=== PATIENT | male | born 1955 | race Caucasian/White ===

== ENCOUNTER 2018-01-02 06:48 | Inpatient (IN) | payer BC ==
[2018-01-02] MEDS ORDERED: Sodium Chloride 0.9% 10 ML Syringe FLUSH PRN (07:55)
--- NOTE | 2018-01-02 08:06 | EDM.PDOC ---
ED HPI GENERAL MEDICAL PROBLEM - General Chief Complaint: Lower Extremity Injury/Pain Stated Complaint: L HIP AND SIDE PAIN Time Seen by Provider: 01/02/18 07:06 Source of Information: Reports: Patient History Limitations: Reports: No Limitations - History of Present Illness INITIAL COMMENTS - FREE TEXT/NARRATIVE: 62 y/o M presents with severe L hip pain. Gradual onset x 2 months. No injury. He initially had some pain in his low back as well as the hip. Had MRI of his low back complete which was reportedly not concerning. Saw Dr. Stephens (spine surgery). Dr. Stephens ordered an MRI which was completed, patient was told that it was unremarkable. He continued to have worsening pain. He states that pain is now localized mostly in the left hip but sometimes travels down the leg. It is most severe in the morning when he wakes up. However it is also very severe with any sort of movement. He has been taking NSAIDs, oxycodone, and a muscle relaxer for pain which makes the pain barely tolerable but this morning the pain was not tolerable so he came in for evaluation. Currently rates the pain is very severe. Pain is worse with ambulation. Today he is unable to walk due to pain. There is not a comfortable position. Intermittently has a feeling of some numbness going down his left leg as well. No weakness. No additional joint pain. No fever or recent illness or any systemic complaints. He doesn't have a history of prior back or hip pain before the past 2 months. He doesn't recall an inciting injury. Saw Dr. Jimenez yesterday who referred him for outpatient MRI which is scheduled for next week and also scheduled with an orthopedist but won't be seeing that physician until January. Left Hip Pain Score (Numeric/FACES): 8 - Related Data Allergies Allergy/AdvReac Type Severity Reaction Status Date / Time Iodinated Contrast- Oral and Allergy Cardiac Verified 01/02/18 10:42 IV Dye Arrest iodoform Allergy Cannot Verified 01/02/18 07:02 Remember povidone-iodine Allergy Cannot Verified 01/02/18 07:02 Remember sodium iodide Allergy Cannot Verified 01/02/18 07:02 Remember iodine AdvReac Hypotension Verified 01/02/18 07:02 Home Meds: Home Meds Aspirin [Adult Low Dose Aspirin EC] 81 mg PO DAILY 03/10/14 [History] Clopidogrel Bisulfate [Clopidogrel] 75 mg PO DAILY 03/10/14 [History] Metoprolol Succinate [Toprol XL] 25 mg PO DAILY 03/10/14 [History] atorvaSTATin Calcium [Atorvastatin Calcium] 80 mg PO DAILY 03/10/14 [History] Indomethacin 25 mg PO TID 01/02/18 [History] Orphenadrine [Norflex] 100 mg PO BID 01/02/18 [History] oxyCODONE HCl/Acetaminophen [Oxycodone-Acetaminophen 5-325] 1 - 2 tab PO QID PRN 01/02/18 [History] Past Medical History HEENT History: Reports: Impaired Vision Other HEENT History: wears reading glasses Cardiovascular History: Reports: Stents Respiratory History: Reports: Pneumonia, Recurrent - Past Surgical History Cardiovascular Surgical History: Reports: Coronary Artery Stent Social & Family History - Tobacco Use Smoking Status *Q: Current Every Day Smoker Years of Tobacco use: 48 Packs/Tins Daily: 0.5 - Caffeine Use Caffeine Use: Reports: Coffee, Soda - Recreational Drug Use Recreational Drug Use: No Review of Systems - Review of Systems Review Of Systems: See Below Constitutional: Denies: Fever Eyes: Reports: No Symptoms Ears: Reports: No Symptoms Nose: Reports: No Symptoms Mouth/Throat: Reports: No Symptoms Respiratory: Reports: No Symptoms Cardiovascular: Denies: Edema GI/Abdominal: Reports: No Symptoms Musculoskeletal: Reports: Leg Pain Skin: Denies: Rash Neurological: Reports: Tingling. Denies: Weakness ED EXAM, GENERAL - Physical Exam Exam: See Below Exam Limited By: No Limitations General Appearance: Alert, WD/WN, No Apparent Distress Eye Exam: Bilateral Eye: Normal Inspection Ears: Normal External Exam Nose: Normal Inspection Throat/Mouth: Normal Voice, No Airway Compromise Head: Atraumatic, Normocephalic Neck: Normal Inspection, Supple Respiratory/Chest: No Respiratory Distress Cardiovascular: Normal Peripheral Pulses, No Edema Peripheral Pulses: 2+: Dorsalis Pedis (L) GI/Abdominal: Soft, No Distention, Other (Left lower quadrant tenderness no rebound or guarding). No: Rebound Back Exam: Normal Inspection, Full Range of Motion, Other (Mild left lower back area tenderness.). No: CVA Tenderness (L), CVA Tenderness (R), Vertebral Tenderness Extremities: Normal Inspection, Other (LLE: No appreciable hip swelling/ deformity. +Severe diffuse TTP about the hip, most severe in groin area. Severe pain is elicited when ranging the hip. No thigh TTP. No knee effusion, full ROM , no knee TTP. Distal motor/sensation intact. 2+DP pulse ) Psychiatric: Normal Affect, Normal Mood Skin Exam: Warm, Dry, Intact, Normal Color, No Rash Course - Vital Signs Last Recorded V/S: Last Vital Signs Temp 36.6 C 01/02/18 06:59 Pulse 70 01/02/18 17:49 Resp 16 01/02/18 17:49 BP 152/100 H 01/02/18 17:49 Pulse Ox 95 01/02/18 17:49 - Orders/Labs/Meds Orders: Active Orders 24 hr Category Date Time Status Peripheral IV Care [RC] . DIRECTED Care 01/02/18 07:55 Active Pelvis wo Cont [MR] Stat Exams 01/02/18 10:36 Taken UA W/MICROSCOPIC [URIN] Stat Lab 01/02/18 13:45 Ordered Morphine Med 01/02/18 08:16 Active 4 mg IVPUSH Q2H PRN Sodium Chloride 0.9% [Saline Flush] Med 01/02/18 07:55 Active 10 ml FLUSH ASDIRECTED PRN Peripheral IV Insertion Adult [OM.PC] Routine Oth 01/02/18 07:55 Ordered Medication Orders Morphine Sulfate (Morphine) 4 mg IVPUSH Q2H PRN PRN Reason: Pain Last Admin: 01/02/18 13:02 Dose: 4 mg Admin: 01/02/18 09:16 Dose: 4 mg Sodium Chloride (Saline Flush) 10 ml FLUSH ASDIRECTED PRN PRN Reason: Keep Vein Open Last Admin: 01/02/18 08:15 Dose: 10 ml Labs: Laboratory Tests 01/02/18 01/02/18 01/02/18 Range/Units 08:15 08:15 08:15 WBC 7.28 (4.23-9.07) K/mm3 RBC 4.79 (4.63-6.08) M/mm3 Hgb 14.9 (13.7-17.5) gm/L Hct 42.9 (40.1-51.0) % MCV 89.6 (79.0-92.2) fl MCH 31.1 (25.7-32.2) pg MCHC 34.7 (32.2-35.5) g/dl RDW Std Deviation 39.8 (35.1-43.9) fL Plt Count 172 (163-337) K/mm3 MPV 9.1 L (9.4-12.3) fl Neut % (Auto) 72.4 H (34.0-67.9) % Lymph % (Auto) 17.2 L (21.8-53.1) % [place] % (Auto) 8.2 (5.3-12.2) % Eos % (Auto) 1.6 (0.8-7.0) Baso % (Auto) 0.3 (0.1-1.2) % Neut # (Auto) 5.27 (1.78-5.38) K/mm3 Lymph # (Auto) 1.25 L (1.32-3.57) K/mm3 [place] # (Auto) 0.60 (0.30-0.82) K/mm3 Eos # (Auto) 0.12 (0.04-0.54) K/mm3 Baso # (Auto) 0.02 (0.01-0.08) K/mm3 ESR 5 (0-15) mm/hr Sodium 140 (136-145) mEq/L Potassium 4.8 (3.5-5.1) mEq/L Chloride 107 (98-107) mEq/L Carbon Dioxide 25 (21-32) mEq/L Anion Gap 12.8 (5-15) BUN 24 H (7-18) mg/dL Creatinine 1.2 (0.7-1.3) mg/dL Est Cr Clr Drug Dosing 66.75 mL/min Estimated GFR (MDRD) > 60 (>60) mL/min BUN/Creatinine Ratio 20.0 H (14-18) Glucose 102 (80-115) mg/dL Calcium 8.6 (8.5-10.1) mg/dL Total Bilirubin 0.7 (0.2-1.0) mg/dL AST 31 (15-37) U/L ALT 51 (16-63) U/L Alkaline Phosphatase 90 (46-116) U/L C-Reactive Protein (<1.0) mg/dL Total Protein 6.6 (6.4-8.2) g/dl Albumin 3.5 (3.4-5.0) g/dl Globulin 3.1 gm/dL Albumin/Globulin Ratio 1.1 (1-2) 01/02/18 Range/Units 08:15 WBC (4.23-9.07) K/mm3 RBC (4.63-6.08) M/mm3 Hgb (13.7-17.5) gm/L Hct (40.1-51.0) % MCV (79.0-92.2) fl MCH (25.7-32.2) pg MCHC (32.2-35.5) g/dl RDW Std Deviation (35.1-43.9) fL Plt Count (163-337) K/mm3 MPV (9.4-12.3) fl Neut % (Auto) (34.0-67.9) % Lymph % (Auto) (21.8-53.1) % [place] % (Auto) (5.3-12.2) % Eos % (Auto) (0.8-7.0) Baso % (Auto) (0.1-1.2) % Neut # (Auto) (1.78-5.38) K/mm3 Lymph # (Auto) (1.32-3.57) K/mm3 [place] # (Auto) (0.30-0.82) K/mm3 Eos # (Auto) (0.04-0.54) K/mm3 Baso # (Auto) (0.01-0.08) K/mm3 ESR (0-15) mm/hr Sodium (136-145) mEq/L Potassium (3.5-5.1) mEq/L Chloride (98-107) mEq/L Carbon Dioxide (21-32) mEq/L Anion Gap (5-15) BUN (7-18) mg/dL Creatinine (0.7-1.3) mg/dL Est Cr Clr Drug Dosing mL/min Estimated GFR (MDRD) (>60) mL/min BUN/Creatinine Ratio (14-18) Glucose (80-115) mg/dL Calcium (8.5-10.1) mg/dL Total Bilirubin (0.2-1.0) mg/dL AST (15-37) U/L ALT (16-63) U/L Alkaline Phosphatase (46-116) U/L C-Reactive Protein < 0.2 (<1.0) mg/dL Total Protein (6.4-8.2) g/dl Albumin (3.4-5.0) g/dl Globulin gm/dL Albumin/Globulin Ratio (1-2) Meds: Medications Generic Name Dose Route Start Last Admin Trade Name Miguel PRN Reason Stop Dose Admin Morphine Sulfate 4 mg 01/02/18 08:16 01/02/18 13:02 Morphine IVPUSH 4 mg Q2H PRN Administration Pain Sodium Chloride 10 ml 01/02/18 07:55 01/02/18 08:15 Saline Flush FLUSH 10 ml ASDIRECTED PRN Administration Keep Vein Open Discontinued Medications Generic Name Dose Route Start Last Admin Trade Name Miguel PRN Reason Stop Dose Admin Cyclobenzaprine HCl 10 mg 01/02/18 16:33 01/02/18 17:33 Flexeril PO 01/02/18 16:34 10 mg ONETIME ONE Administration Dexamethasone 10 mg 01/02/18 16:33 01/02/18 17:34 Dexamethasone IV 01/02/18 16:34 Not Given ONETIME ONE Dexamethasone 10 mg 01/02/18 17:26 01/02/18 17:31 Dexamethasone IVPUSH 01/02/18 17:27 10 mg ONETIME ONE Administration Dexamethasone Confirm 01/02/18 17:25 01/02/18 17:31 Dexamethasone Administered 01/02/18 17:26 Not Given Dose 10 mg .ROUTE .STK-MED ONE Gabapentin 100 mg 01/02/18 16:29 01/02/18 17:33 Neurontin PO 01/02/18 16:30 100 mg ONETIME ONE Administration Gadobenate Dimeglumine 20 ml 01/02/18 11:29 Multihance IVPUSH 01/02/18 11:30 ONETIME ONE Hydromorphone HCl 1 mg 01/02/18 16:27 01/02/18 17:28 Dilaudid IVPUSH 01/02/18 16:28 1 mg ONETIME ONE Administration Ketorolac Tromethamine 30 mg 01/02/18 16:29 01/02/18 17:34 Toradol IVPUSH 01/02/18 16:30 30 mg ONETIME ONE Administration Sodium Chloride 10 ml 01/02/18 11:30 Saline Flush FLUSH ASDIRECTED NATALIE - Re-Assessments/Exams Free Text/Narrative Re-Assessment/Exam: 01/02/18 17:59 We obtained x-rays pushed from [place]. Left hip showed mild degenerative changes, otherwise unremarkable. Patient had a venous duplex of the bilateral lower extremities completed at [place] on 12/29/17. The report was no evidence of DVT. Lumbar spine x-ray showed degenerative spondylosis otherwise normal. MRI L spine dated 12/19/17 report reads left L4-L5 foraminal protrusion resulting in moderate neural foraminal narrowing and mild L5-S1 disc bulge with associated neural foraminal narrowing. Given severity of patient's symptoms, I was initially concerned about possible septic joint. However his ESR, CRP, and CBC are all completely normal. MRI of the pelvis was completed and showed no significant abnormality. Patient did have some mild left lower quadrant tenderness as well and given negative studies expanded workup to include a CT abdomen and pelvis without contrast since patient has a severe IV contrast allergy. This study was also normal. Upon reevaluation, he continues to have significant pain even after a few doses of narcotic medication. He doesn't feel like he can get out of bed. I do not have any concerns of narcotic pain medication seeking behavior him I believe the patient is legitimately too uncomfortable to move. Severe sciatica is a consideration. I ordered dexamethasone, gabapentin, Toradol. saw the patient in the emergency department and doesn't have any further recommendations at this time but will continue to follow the patient if he's admitted. Discussed with Dr. Bonner who agrees to evaluate the patient for possible admission for pain control, physical therapy. Departure - Departure Time of Disposition: 18:04 Disposition: Admitted As Inpatient 67 Clinical Impression: Hip pain, left, Back pain with left-sided sciatica - Discharge Information Referrals: Prudencio Deal MD [Primary Care Provider] - Forms: ED Department Discharge - My Orders Last 24 Hours: My Active Orders 01/02/18 07:55 Peripheral IV Care [RC] . DIRECTED Sodium Chloride 0.9% [Saline Flush] 10 ml FLUSH ASDIRECTED PRN Peripheral IV Insertion Adult [OM.PC] Routine 01/02/18 08:16 Morphine 4 mg IVPUSH Q2H PRN 01/02/18 10:36 Pelvis wo Cont [MR] Stat 01/02/18 13:45 UA W/MICROSCOPIC [URIN] Stat - Assessment/Plan Last 24 Hours: My Active Orders 01/02/18 07:55 Peripheral IV Care [RC] . DIRECTED Sodium Chloride 0.9% [Saline Flush] 10 ml FLUSH ASDIRECTED PRN Peripheral IV Insertion Adult [OM.PC] Routine 01/02/18 08:16 Morphine 4 mg IVPUSH Q2H PRN 01/02/18 10:36 Pelvis wo Cont [MR] Stat 01/02/18 13:45 UA W/MICROSCOPIC [URIN] Stat
[2018-01-02] MEDS: Morphine 4 MG/ML Syringe IVPUSH PRN ×2 (09:16→13:02)
[2018-01-02] MEDS ORDERED: Gadobenate Dimeglumine 529 MG/ML 20 ML SDV IVPUSH ONE (11:29)
[2018-01-02] MEDS ORDERED: Sodium Chloride 0.9% 10 ML Syringe FLUSH SCH (11:30)
--- NOTE | 2018-01-02 14:23 | CT ---
CT abdomen and pelvis Technique: Multiple axial sections were obtained from above the dome of the diaphragm inferiorly through the pubic symphysis. Intravenous and oral contrast not utilized. Lack of contrast diminishes some details. Findings: Kidneys show no abnormal calcifications. No ureteral dilatation or ureteral stone is seen. Visualized lung bases shows nothing acute. 4 low density lesions are seen within the liver which are felt compatible with cysts. Largest cyst measures approximately 3.4 cm. Spleen appears within normal limits. Adrenal glands show no nodule. Pancreas is within normal limits. Calcified gallstones are seen within the gallbladder. Pancreas is within normal limits. Aorta shows atherosclerotic calcification which continues into the iliac vessels. No pelvic mass or adenopathy is seen. Small fat-containing inguinal hernias are seen bilaterally. Appendix is seen which is normal in size. Mild diverticulosis is seen within the sigmoid colon. No inflammatory change or free fluid is seen. Bone window settings were reviewed which appear within normal limits for the patient's age. Incidental note of small fat-containing umbilical hernia. Impression: 1. Incidental findings as noted above. No acute abnormality is identified on noncontrast CT study of the abdomen and pelvis. Diagnostic code #2
[2018-01-02] MEDS ORDERED: HYDROmorphone 0.5 MG/0.5 ML SYRINGE IVPUSH ONE (16:27)
[2018-01-02] MEDS ORDERED: Gabapentin 100 MG Cap PO ONE (16:29)
[2018-01-02] MEDS ORDERED: Ketorolac 30 MG/ML SDV IVPUSH ONE (16:29)
[2018-01-02] MEDS ORDERED: Dexamethasone 4 MG/ML 5 ML MDV IV ONE (16:33)
[2018-01-02] MEDS ORDERED: Cyclobenzaprine 10 MG Tab PO ONE (16:33)
[2018-01-02] MEDS ORDERED: Dexamethasone 10 MG/ML SDV ONE (17:25)
[2018-01-02] MEDS ORDERED: Dexamethasone 10 MG/ML SDV IVPUSH ONE (17:26)
--- NOTE | 2018-01-02 19:56 | PCM.HP ---
H&P History of Present Illness - General Date of Service: 01/02/18 Admit Problem/Dx: Admission Diagnosis/Problem Admission Diagnosis/Problem Hip pain Source of Information: Patient, Family, Provider - History of Present Illness Initial Comments - Free Text/Narative: 62 year old complains of initially back pain but now has left hip pain with movement. he has been seen by multiple providers including Dr Stephens, a back surgeon. There have also been several imaging studies including an MRI which have all been unremarkable. The discomfort and subsequent decreased ability to perform simple task began 2 months ago without an apparent precipitating factor. he has managed his discomfort predominately with OTC Motrin. Recently after being at their [facility] and a day of water sports (water skis/jet skis), the patient experienced svere pain and was taken to the ED in [place]. At that location, he was evaluated, and discharged with three prescriptions. Yesterday he was seen by his PCP, there was no significant pain, however today he reports an inability to get out of bed or move without severe discomfort. He was sen by ortho, an MRI was oredered and was within normal limits. He is a full code and will be admitted for intractable pain. He has been seen by DEEP in the ED for possible placement in a SNF for inpatient rehab. Onset of Symptoms: Reports: Gradual Symptom Onset Date: 10/22/17 Duration of Symptoms: Reports: Week(s):, Getting Worse Location: Reports: Back, Lower Extremity, Left Severity: Moderate Improves with: Reports: Heat Therapy, Medication Worsens with: Reports: Movement Left Hip Pain Score (Numeric/FACES): 3 - Related Data Allergies/Adverse Reactions: Allergies Allergy/AdvReac Type Severity Reaction Status Date / Time Iodinated Contrast- Oral and Allergy Cardiac Verified 01/02/18 10:42 IV Dye Arrest iodoform Allergy Cannot Verified 01/02/18 07:02 Remember povidone-iodine Allergy Cannot Verified 01/02/18 07:02 Remember sodium iodide Allergy Cannot Verified 01/02/18 07:02 Remember iodine AdvReac Hypotension Verified 01/02/18 07:02 Home Medications: Home Meds Aspirin [Adult Low Dose Aspirin EC] 81 mg PO DAILY 03/10/14 [History] Clopidogrel Bisulfate [Clopidogrel] 75 mg PO DAILY 03/10/14 [History] Metoprolol Succinate [Toprol XL] 25 mg PO DAILY 03/10/14 [History] atorvaSTATin Calcium [Atorvastatin Calcium] 80 mg PO DAILY 03/10/14 [History] Indomethacin 25 mg PO TID 01/02/18 [History] Orphenadrine [Norflex] 100 mg PO BID 01/02/18 [History] Valsartan 80 mg PO 01/02/18 [History] oxyCODONE HCl/Acetaminophen [Oxycodone-Acetaminophen 5-325] 1 - 2 tab PO QID PRN 01/02/18 [History] Past Medical History HEENT History: Reports: Impaired Vision Other HEENT History: wears reading glasses Cardiovascular History: Reports: Stents Respiratory History: Reports: Pneumonia, Recurrent - Past Surgical History Cardiovascular Surgical History: Reports: Coronary Artery Stent Social & Family History - Tobacco Use Smoking Status *Q: Current Every Day Smoker Years of Tobacco use: 48 Packs/Tins Daily: 0.5 - Caffeine Use Caffeine Use: Reports: Coffee, Soda - Recreational Drug Use Recreational Drug Use: No H&P Review of Systems - Review of Systems: Review Of Systems: See Below General: Reports: No Symptoms HEENT: Reports: No Symptoms Pulmonary: Reports: No Symptoms Cardiovascular: Reports: No Symptoms Gastrointestinal: Reports: No Symptoms Genitourinary: Reports: No Symptoms Musculoskeletal: Reports: Back Pain, Leg Pain Skin: Reports: No Symptoms Psychiatric: Reports: No Symptoms Neurological: Reports: No Symptoms Hematologic/Lymphatic: Reports: No Symptoms Immunologic: Reports: No Symptoms Exam - Exam Exam: See Below - Vital Signs Vital Signs: Last Vital Signs Temp 36.7 C 01/02/18 19:00 Pulse 74 01/02/18 19:00 Resp 20 01/02/18 19:00 BP 152/92 H 01/02/18 19:00 Pulse Ox 94 L 01/02/18 19:00 Weight: 98.43 kg - Exam Quality Assessment: Supplemental Oxygen General: Alert, Oriented, Cooperative HEENT: Conjunctiva Clear, EACs Clear, EOMI, Nares Patent, Normal Nasal Septum, Pupils Equal, Pupils Reactive, PERRLA Neck: Trachea Midline Lungs: Clear to Auscultation, Normal Respiratory Effort Cardiovascular: Regular Rate, Regular Rhythm GI/Abdominal Exam: Normal Bowel Sounds, Soft, Non-Tender, No Organomegaly, No Distention (Male) Exam: Deferred Rectal (Males) Exam: Deferred Back Exam: Normal Inspection, Other (lower back tenderness) Extremities: Normal Inspection, Normal Range of Motion, Normal Capillary Refill , Other (diffuse TTP at left hip) Skin: Warm Neurological: Cranial Nerves Intact, Reflexes Equal Bilateral, Normal Speech Neuro Extensive - Mental Status: Alert, Oriented x3, Normal Mood/Affect, Normal Cognition, Memory Intact Neuro Extensive - Motor, Sensory, Reflexes: CN II-XII Intact Psychiatric: Alert, Normal Affect, Normal Mood - Patient Data Lab Results Last 24 hrs: Laboratory Results - last 24 hr 01/02/18 01/02/18 01/02/18 Range/Units 08:15 08:15 08:15 WBC 7.28 (4.23-9.07) K/mm3 RBC 4.79 (4.63-6.08) M/mm3 Hgb 14.9 (13.7-17.5) gm/L Hct 42.9 (40.1-51.0) % MCV 89.6 (79.0-92.2) fl MCH 31.1 (25.7-32.2) pg MCHC 34.7 (32.2-35.5) g/dl RDW Std Deviation 39.8 (35.1-43.9) fL Plt Count 172 (163-337) K/mm3 MPV 9.1 L (9.4-12.3) fl Neut % (Auto) 72.4 H (34.0-67.9) % Lymph % (Auto) 17.2 L (21.8-53.1) % [place] % (Auto) 8.2 (5.3-12.2) % Eos % (Auto) 1.6 (0.8-7.0) Baso % (Auto) 0.3 (0.1-1.2) % Neut # (Auto) 5.27 (1.78-5.38) K/mm3 Lymph # (Auto) 1.25 L (1.32-3.57) K/mm3 [place] # (Auto) 0.60 (0.30-0.82) K/mm3 Eos # (Auto) 0.12 (0.04-0.54) K/mm3 Baso # (Auto) 0.02 (0.01-0.08) K/mm3 ESR 5 (0-15) mm/hr Sodium 140 (136-145) mEq/L Potassium 4.8 (3.5-5.1) mEq/L Chloride 107 (98-107) mEq/L Carbon Dioxide 25 (21-32) mEq/L Anion Gap 12.8 (5-15) BUN 24 H (7-18) mg/dL Creatinine 1.2 (0.7-1.3) mg/dL Est Cr Clr Drug Dosing 66.75 mL/min Estimated GFR (MDRD) > 60 (>60) mL/min BUN/Creatinine Ratio 20.0 H (14-18) Glucose 102 (80-115) mg/dL Calcium 8.6 (8.5-10.1) mg/dL Total Bilirubin 0.7 (0.2-1.0) mg/dL AST 31 (15-37) U/L ALT 51 (16-63) U/L Alkaline Phosphatase 90 (46-116) U/L C-Reactive Protein (<1.0) mg/dL Total Protein 6.6 (6.4-8.2) g/dl Albumin 3.5 (3.4-5.0) g/dl Globulin 3.1 gm/dL Albumin/Globulin Ratio 1.1 (1-2) // Range/Units 08:15 WBC (4.23-9.07) K/mm3 RBC (4.63-6.08) M/mm3 Hgb (13.7-17.5) gm/L Hct (40.1-51.0) % MCV (79.0-92.2) fl MCH (25.7-32.2) pg MCHC (32.2-35.5) g/dl RDW Std Deviation (35.1-43.9) fL Plt Count (163-337) K/mm3 MPV (9.4-12.3) fl Neut % (Auto) (34.0-67.9) % Lymph % (Auto) (21.8-53.1) % [place] % (Auto) (5.3-12.2) % Eos % (Auto) (0.8-7.0) Baso % (Auto) (0.1-1.2) % Neut # (Auto) (1.78-5.38) K/mm3 Lymph # (Auto) (1.32-3.57) K/mm3 [place] # (Auto) (0.30-0.82) K/mm3 Eos # (Auto) (0.04-0.54) K/mm3 Baso # (Auto) (0.01-0.08) K/mm3 ESR (0-15) mm/hr Sodium (136-145) mEq/L Potassium (3.5-5.1) mEq/L Chloride (98-107) mEq/L Carbon Dioxide (21-32) mEq/L Anion Gap (5-15) BUN (7-18) mg/dL Creatinine (0.7-1.3) mg/dL Est Cr Clr Drug Dosing mL/min Estimated GFR (MDRD) (>60) mL/min BUN/Creatinine Ratio (14-18) Glucose (80-115) mg/dL Calcium (8.5-10.1) mg/dL Total Bilirubin (0.2-1.0) mg/dL AST (15-37) U/L ALT (16-63) U/L Alkaline Phosphatase (46-116) U/L C-Reactive Protein < 0.2 (<1.0) mg/dL Total Protein (6.4-8.2) g/dl Albumin (3.4-5.0) g/dl Globulin gm/dL Albumin/Globulin Ratio (1-2) Result Diagrams: 01/02/18 08:15 01/02/18 08:15 - Problem List (1) CAD (coronary artery disease) SNOMED Code(s): 64187421 ICD Code: I25.10 - ATHSCL HEART DISEASE OF [place] CORONARY ARTERY W/O ANG PCTRS Status: Acute Current Visit: Yes (2) Hyperlipidemia associated with type 2 diabetes mellitus SNOMED Code(s): 779187777576, 671288455839 ICD Code: E11.69 - TYPE 2 DIABETES MELLITUS WITH OTHER SPECIFIED COMPLICATION ; E78.5 - HYPERLIPIDEMIA, UNSPECIFIED Status: Acute Current Visit: Yes (3) Back pain with left-sided sciatica SNOMED Code(s): 769245204, 678969794 ICD Code: M54.32 - SCIATICA, LEFT SIDE Status: Acute Current Visit: Yes (4) Hip pain, left SNOMED Code(s): 97054312 ICD Code: M25.552 - PAIN IN LEFT HIP Status: Acute Current Visit: Yes Problem List Initiated/Reviewed/Updated: Yes Orders Last 24hrs: Active Orders 24 hr Category Date Time Status Patient Status [ADT] Routine ADT 01/02/18 18:33 Active Pelvis wo Cont [MR] Stat Exams 01/02/18 10:36 Taken UA W/MICROSCOPIC [URIN] Stat Lab 01/02/18 13:45 Ordered Morphine Med 01/02/18 08:16 Active 4 mg IVPUSH Q2H PRN Sodium Chloride 0.9% [Saline Flush] Med 01/02/18 07:55 Active 10 ml FLUSH ASDIRECTED PRN Peripheral IV Insertion Adult [OM.PC] Routine Oth 01/02/18 07:55 Ordered Resuscitation Status Routine Resus Stat 01/02/18 19:39 Ordered Medication Orders Morphine Sulfate (Morphine) 4 mg IVPUSH Q2H PRN PRN Reason: Pain Last Admin: 01/02/18 13:02 Dose: 4 mg Admin: 01/02/18 09:16 Dose: 4 mg Sodium Chloride (Saline Flush) 10 ml FLUSH ASDIRECTED PRN PRN Reason: Keep Vein Open Last Admin: 01/02/18 08:15 Dose: 10 ml Assessment/Plan Comment:: Impression: -Intractable left hip/back pain 12/19/17: MRI L spine: L4-L5 foraminal protusion with moderate neural foraminal narrowing; mild L5-S1 disc bulge with associated neural foraminal narrowing. History of CAD with PCI Query HTN Query Lipid status Plan: Pain mgt: steroids, NSAID, opiods as needed. Consult PT/OT/SW (completed) Dietary consult Home meds Daily Labs Ortho appt as OP Query pain mgt DVT/GI prophylaxis
[2018-01-02] MEDS ORDERED: HYDROmorphone 0.5 MG/0.5 ML SYRINGE IVPUSH PRN (20:06)
[2018-01-02] MEDS ORDERED: Lactated Ringers 1,000 ML IV ONE (20:15)
[2018-01-02] MEDS ORDERED: Diphtheria,Pertussis(Acell),Tetanus Vaccine 0.5 ML SDV IM ONE (20:25)
[2018-01-02] MEDS: Orphenadrine 100 MG Tab.ER PO SCH (21:10)
[2018-01-02] MEDS: Gabapentin 100 MG Cap PO SCH (21:10)
[2018-01-02] MEDS: Dexamethasone 4 MG/ML SDV IVPUSH SCH (21:11)
[2018-01-03] MEDS: Ketorolac 30 MG/ML SDV IVPUSH SCH ×3 (01:02→18:25)
[2018-01-03] MEDS: Dexamethasone 4 MG/ML SDV IVPUSH SCH ×3 (06:05→21:42)
[2018-01-03] MEDS ORDERED: Cyclobenzaprine 10 MG Tab PO PRN (08:09)
[2018-01-03] MEDS: Orphenadrine 100 MG Tab.ER PO SCH ×2 (09:28→20:19)
[2018-01-03] MEDS: Metoprolol Succinate 25 MG Tab.ER PO SCH (09:28)
[2018-01-03] MEDS: Aspirin 81 MG Tab.EC PO SCH (09:29)
[2018-01-03] MEDS: Clopidogrel 75 MG Tab PO SCH (09:29)
[2018-01-03] MEDS: Gabapentin 100 MG Cap PO SCH ×2 (09:29→20:19)
[2018-01-03] MEDS: Famotidine 20 MG Tab PO SCH (09:29)
[2018-01-03] MEDS: Rosuvastatin 10 MG Tab PO SCH (09:29)
--- NOTE | 2018-01-03 18:11 | PCM.PN ---
- General Info Date of Service: 01/03/18 Admission Dx/Problem (Free Text): Admission Diagnosis/Problem Admission Diagnosis/Problem Hip pain Subjective Update: In to see Cheo. He is sitting up in bed watching TV. He currently states his back pain is "minimal" but that his left hip is about a 2/10 at rest and 8/10 when walking. He also states he has shooting tingling pain down the left leg to his toes. He states it's difficult to walk more than just to the bathroom. He is unsure if medication has been helping to alleviate the pain.He also states he feels he may be constipated, his last normal BM was Sunday. He denies any bloating, distension or discomfort- I told him if he would like medication for helping alleviate constipation to let nursing know. He denies the need for this medication at this time. No other concerns from nursing. Will most likely D/C tomorrow pending clinical disposition. Recommend outpt orthopedic follow up with Dr. Taveras in clinic. Functional Status: Reports: Pain Controlled, Tolerating Diet, Ambulating, Urinating - Review of Systems General: Reports: No Symptoms. Denies: Fever, Weakness, Chills HEENT: Reports: No Symptoms Pulmonary: Reports: No Symptoms Cardiovascular: Reports: No Symptoms Gastrointestinal: Reports: Constipation (last BM sunday). Denies: Abdominal Pain, Diarrhea, Nausea, Vomiting Genitourinary: Reports: No Symptoms Musculoskeletal: Reports: Back Pain (minimal), Joint Pain (left hip 2/10 at rest , 8/10 with movement ) Skin: Reports: No Symptoms Neurological: Reports: Tingling (down left leg to toes, comes and goes) Psychiatric: Reports: No Symptoms - Patient Data Vitals - Most Recent: Last Vital Signs Temp 98.1 F 01/03/18 11:32 Pulse 90 01/03/18 11:32 Resp 18 01/03/18 11:32 BP 149/86 H 01/03/18 11:32 Pulse Ox 94 L 01/03/18 11:32 Weight - Most Recent: 217 lb I&O - Last 24 Hours: Intake & Output 01/03/18 01/03/18 01/03/18 06:59 14:59 22:59 Intake Total 1200 180 100 Output Total 900 600 Balance 300 180 -500 Lab Results Last 24 Hours: Laboratory Results - last 24 hr 01/02/18 Range/Units 04:45 Urine Color Yellow (Yellow) Urine Appearance Clear (Clear) Urine pH 5.5 (5.0-8.0) Ur Specific [place] > or = 1.030 (1.005-1.030) Urine Protein Negative (Negative) Urine Glucose (UA) 2+ H (Negative) Urine Ketones Negative (Negative) Urine Occult Blood Negative (Negative) Urine Nitrite Negative (Negative) Urine Bilirubin Negative (Negative) Urine Urobilinogen 0.2 (0.2-1.0) Ur Leukocyte Esterase Negative (Negative) Urine RBC Not seen (0-5) /hpf Urine WBC 0-5 (0-5) /hpf Ur Epithelial Cells 0-5 (0-5) /hpf Urine Bacteria Not seen (FEW) /hpf Urine Mucus Not seen (FEW) /hpf Med Orders - Current: Current Medications Aspirin (Halfprin) 81 mg PO DAILY [facility] Last Admin: 01/03/18 09:29 Dose: 81 mg Clopidogrel Bisulfate (Plavix) 75 mg PO DAILY [facility] Last Admin: 01/03/18 09:29 Dose: 75 mg Dexamethasone (Dexamethasone) 8 mg IVPUSH Q8H [facility] Stop: 01/04/18 09:00 Last Admin: 01/03/18 14:16 Dose: 8 mg Famotidine (Pepcid) 20 mg PO DAILY [facility] Last Admin: 01/03/18 09:29 Dose: 20 mg Gabapentin (Neurontin) 200 mg PO BID [facility] Last Admin: 01/03/18 09:29 Dose: 200 mg Hydromorphone HCl (Dilaudid) 0.5 mg IVPUSH QID PRN PRN Reason: Pain (moderate 4-6) Ketorolac Tromethamine (Toradol) 30 mg IVPUSH Q8H [facility] Stop: 01/04/18 09:00 Last Admin: 01/03/18 09:29 Dose: 30 mg Metoprolol Succinate (Toprol Xl) 25 mg PO DAILY [facility] Last Admin: 01/03/18 09:28 Dose: 25 mg Morphine Sulfate (Morphine) 4 mg IVPUSH Q2H PRN PRN Reason: Pain Last Admin: 01/02/18 13:02 Dose: 4 mg Orphenadrine Citrate (Norflex) 100 mg PO BID [facility] Last Admin: 01/03/18 09:28 Dose: 100 mg Rosuvastatin Calcium (Crestor) 20 mg PO DAILY [facility] Last Admin: 01/03/18 09:29 Dose: 20 mg Sodium Chloride (Saline Flush) 10 ml FLUSH ASDIRECTED PRN PRN Reason: Keep Vein Open Last Admin: 01/02/18 08:15 Dose: 10 ml Discontinued Medications Cyclobenzaprine HCl (Flexeril) 10 mg PO ONETIME ONE Stop: 01/02/18 16:34 Last Admin: 01/02/18 17:33 Dose: 10 mg Dexamethasone (Dexamethasone) 10 mg IV ONETIME ONE Stop: 01/02/18 16:34 Last Admin: 01/02/18 17:34 Dose: Not Given Dexamethasone (Dexamethasone) 10 mg IVPUSH ONETIME ONE Stop: 01/02/18 17:27 Last Admin: 01/02/18 17:31 Dose: 10 mg Dexamethasone (Dexamethasone) Confirm Administered Dose 10 mg .ROUTE .STK-MED ONE Stop: 01/02/18 17:26 Last Admin: 01/02/18 17:31 Dose: Not Given Dexamethasone (Dexamethasone) 4 mg IVPUSH Q8H [facility] Last Admin: 01/03/18 06:05 Dose: 4 mg Diphtheria/Tetanus/Acell Pertussis (Adacel) 0.5 ml IM .ONCE ONE Stop: 01/02/18 20:26 Last Admin: 01/02/18 21:43 Dose: Not Given Gabapentin (Neurontin) 100 mg PO ONETIME ONE Stop: 01/02/18 16:30 Last Admin: 01/02/18 17:33 Dose: 100 mg Gadobenate Dimeglumine (Multihance) 20 ml IVPUSH ONETIME ONE Stop: 01/02/18 11:30 Last Admin: 01/02/18 19:52 Dose: Not Given Hydromorphone HCl (Dilaudid) 1 mg IVPUSH ONETIME ONE Stop: 01/02/18 16:28 Last Admin: 01/02/18 17:28 Dose: 1 mg Lactated Ringer's (Ringers, Lactated) 1,000 mls @ 150 mls/hr IV ONETIME ONE Stop: 01/03/18 02:54 Last Admin: 01/02/18 21:11 Dose: 150 mls/hr Ketorolac Tromethamine (Toradol) 30 mg IVPUSH ONETIME ONE Stop: 01/02/18 16:30 Last Admin: 01/02/18 17:34 Dose: 30 mg Sodium Chloride (Saline Flush) 10 ml FLUSH ASDIRECTED NATALIE - Exam Quality Assessment: DVT Prophylaxis. No: Supplemental Oxygen General: Alert, Oriented, Cooperative, No Acute Distress HEENT: Pupils Equal, Pupils Reactive, EOMI, Mucous Membr. Moist/[place] Neck: Supple Lungs: Clear to Auscultation, Normal Respiratory Effort Cardiovascular: Regular Rate, Regular Rhythm GI/Abdominal Exam: Normal Bowel Sounds (hyperactive), Soft, Non-Tender, No Organomegaly, No Distention, No Abnormal Bruit, No Mass, Pelvis Stable (Male) Exam: Deferred Back Exam: Normal Inspection, Full Range of Motion. No: Decreased Range of Motion, Muscle Spasm, Paraspinal Tenderness, Vertebral Tenderness Extremities: Normal Inspection, Normal Range of Motion, Non-Tender, No Pedal Edema, Normal Capillary Refill Peripheral Pulses: 3+: Posterior Tibial (L), Posterior Tibial (R), Dorsalis Pedis (L), Dorsalis Pedis (R) Skin: Warm, Dry, Intact Neurological: No New Focal Deficit Psy/Mental Status: Alert, Normal Affect, Normal Mood - Problem List & Annotations (1) Back pain with left-sided sciatica SNOMED Code(s): 333044347, 057800745 Code(s): M54.32 - SCIATICA, LEFT SIDE Status: Acute Priority: High Current Visit: Yes (2) CAD (coronary artery disease) SNOMED Code(s): 07188874 Code(s): I25.10 - ATHSCL HEART DISEASE OF [place] CORONARY ARTERY W/O ANG PCTRS Status: Chronic Priority: Low Current Visit: No Qualifiers: Coronary Disease-Associated Artery/Lesion type: unspecified vessel or lesion type [place] vs. transplanted heart: [place] heart Associated angina: angina presence unspecified Qualified Code(s): I25.10 - Atherosclerotic heart disease of [place] coronary artery without angina pectoris (3) Hip pain, left SNOMED Code(s): 80446847 Code(s): M25.552 - PAIN IN LEFT HIP Status: Acute Priority: High Current Visit: Yes (4) Hyperlipidemia associated with type 2 diabetes mellitus SNOMED Code(s): 174983701631, 842888648121 Code(s): E11.69 - TYPE 2 DIABETES MELLITUS WITH OTHER SPECIFIED COMPLICATION ; E78.5 - HYPERLIPIDEMIA, UNSPECIFIED Status: Chronic Priority: Low Current Visit: No - Problem List Review Problem List Initiated/Reviewed/Updated: Yes - Plan Plan:: I/P: Acute: Intractable left hip/back pain -12/19/17: MRI L spine: L4-L5 foraminal protusion with moderate neural foraminal narrowing; mild L5-S1 disc bulge with associated neural foraminal narrowing. -Pelvis MRI--> pending results -Ab/Pelvis CT--> no acute abnormal findings -Pain mgt: Steroids, NSAID, opioids as needed -Consult PT/OT -Discussed with Dr. Taveras- recommend outpt f/u -F/U with PCP Query HTN -163/84 at highest here -Continue at home Metoprolol XL 25mg Q daily -Hydralazine PRN if >140/90 -F/U with PCP Query Lipid status -h/o CAD with PCI -Lipid Panel Ordered -Continue at home ASA, Valsartan, Plavix -F/U with PCP/Coroner Chronic: CAD with PCI Plan: Admit to Med Surg Consult PT/OT/SW Dietary consult Home meds Daily Labs Ortho appt as OP Query pain mgt DVT/GI prophylaxis Most likely D/C tomorrow pending clinical disposition
[2018-01-03] MEDS ORDERED: hydrALAZINE 20 MG/ML SDV IVPUSH PRN (19:03)
[2018-01-04] MEDS: Ketorolac 30 MG/ML SDV IVPUSH SCH (01:04)
[2018-01-04] MEDS: Morphine 4 MG/ML Syringe IVPUSH PRN (02:12)
[2018-01-04] MEDS: Dexamethasone 4 MG/ML SDV IVPUSH SCH (05:11)
[2018-01-04] MEDS ORDERED: Magnesium Hydroxide 400 MG/5 ML Susp 30 ML Cup PO ONE (05:38)
--- NOTE | 2018-01-04 09:13 | MR ---
MRI pelvis Technique: Fat-suppressed inversion recovery, T2 fat-suppressed and T2 gradient echo coronal; T1 and T2 sagittal; T1, T2 fat-suppressed axial images were obtained. Findings: Uppermost portions of the psoas muscles not included on the exam. Other portions of the psoas muscle as well as iliacus muscles appear normal. No abscess is seen. No bone marrow edema is identified within either hip or within the adjacent pelvis. No muscle edema is seen around either hip. No low signal fracture line is seen on the T1 sequence. Joint fluid is seen within both hips which appears symmetric and appears within normal limits. Impression: 1. No abnormality is seen on MRI study of the pelvis as described above. No etiology is identified to explain the patient's severe left hip pain. Diagnostic code #1 MTDD
[2018-01-04] MEDS ORDERED: Acetaminophen/HYDROcodone 325-10 MG Tab PO ONE (09:45)
[2018-01-04 09:51] VITALS: BP 119/76
[2018-01-04] MEDS: Clopidogrel 75 MG Tab PO SCH (09:51)
[2018-01-04] MEDS: Gabapentin 100 MG Cap PO SCH (09:52)
[2018-01-04] MEDS: Famotidine 20 MG Tab PO SCH (09:52)
[2018-01-04] MEDS: Rosuvastatin 10 MG Tab PO SCH (09:53)
[2018-01-04] MEDS: Aspirin 81 MG Tab.EC PO SCH (09:53)
[2018-01-04] MEDS: Metoprolol Succinate 25 MG Tab.ER PO SCH (09:54)
[2018-01-04] MEDS: Orphenadrine 100 MG Tab.ER PO SCH (09:55)
--- NOTE | 2018-01-04 11:30 | PCM.DCSUM1 ---
Discharge Summary - Hospital Course Free Text/Narrative:: Patient was treated with multiple medications for pain relief with minimal- moderate reliance on narcotics; he received IV steroids as well as IV NSAIDS with fairly rapid improvement of his symptoms. PT/OT evaluation and treatment also occurred. Complaints at DC: Back Pain (minimal), Joint Pain (left hip 2/10 at rest, 6-8/ 10 with movement ). Medications continued, he was DCd on medications provided at the time of his DC from [place]: Indocin, Percocet, and Norflex. An additional Norflex prescription was provided. Also he was given Neurontin for pain relief. Diagnosis: Left hip pain, NOS Back pain, left sided sciatica Consults PT/OT-DCd with walker and crutches and exercise to be performed as OP Case management DC appt PCP (Dr Perez)-Sunday, 01/07/18 Pain mgt provider (arranged by Dr Stephens)-, 01/10/18 Ortho (Dr Taveras)-Sunday, 01/18/18 HPI Initial Comments: 62 year old complains of initially back pain but now has left hip pain with movement. he has been seen by multiple providers including Dr Stephens, a back surgeon. There have also been several imaging studies including an MRI which have all been unremarkable. The discomfort and subsequent decreased ability to perform simple task began 2 months ago without an apparent precipitating factor. He has managed his discomfort predominately with OTC Motrin. Recently after being at their [facility] and a day of water sports (water skis/jet skis), the patient experienced svere pain and was taken to the ED in [place]. At that location, he was evaluated, and discharged with three prescriptions. Yesterday he was seen by his PCP, there was no significant pain, however today he reports an inability to get out of bed or move without severe discomfort. He was sen by ortho, an MRI was ordered and was within normal limits. He is a full code and will be admitted for intractable pain. He has been seen by [facility] in the ED for possible placement in a SNF for inpatient rehab. Diagnosis: Stroke: No - Discharge Data Discharge Date: 01/04/18 Discharge Disposition: Home, Self-Care 01 Condition: Good - Discharge Diagnosis/Problem(s) (1) CAD (coronary artery disease) SNOMED Code(s): 64435384 ICD Code: I25.10 - ATHSCL HEART DISEASE OF [place] CORONARY ARTERY W/O ANG PCTRS Status: Chronic Priority: Low Qualifiers: Coronary Disease-Associated Artery/Lesion type: unspecified vessel or lesion type [place] vs. transplanted heart: [place] heart Associated angina: angina presence unspecified Qualified Code(s): I25.10 - Atherosclerotic heart disease of [place] coronary artery without angina pectoris (2) Hyperlipidemia associated with type 2 diabetes mellitus SNOMED Code(s): 010240734354, 027085868790 ICD Code: E11.69 - TYPE 2 DIABETES MELLITUS WITH OTHER SPECIFIED COMPLICATION ; E78.5 - HYPERLIPIDEMIA, UNSPECIFIED Status: Chronic Priority: Low (3) Back pain with left-sided sciatica SNOMED Code(s): 914733620, 610385662 ICD Code: M54.32 - SCIATICA, LEFT SIDE Status: Acute Priority: High (4) Hip pain, left SNOMED Code(s): 37999243 ICD Code: M25.552 - PAIN IN LEFT HIP Status: Acute Priority: High - Patient Summary/Data Consults: Consultations 01/02/18 20:00 Consult to Case Management [CONS] Routine 01/03/18 09:00 Consult to Occupational Therapy [OT Evaluation and Treatment] [CONS] Routine Consult to Physical Therapy [PT Evaluation and Treatment] [CONS] Routine 01/03/18 11:24 Consult to Physical Therapy [PT Evaluation and Treatment] [CONS] Routine - Patient Instructions Diet: Heart Healthy Diet (weight loss) Activity: Rest and Relax Today Driving: Do Not Drive Showering/Bathing: May Shower Notify Provider of: Fever, Increased Pain, Nausea and/or Vomiting - Discharge Plan Prescriptions/Med Rec: Orphenadrine [Norflex] 100 mg PO BID #10 tab.er Home Medications: Home Meds Aspirin [Adult Low Dose Aspirin EC] 81 mg PO DAILY 03/10/14 [History] Clopidogrel Bisulfate [Clopidogrel] 75 mg PO DAILY 03/10/14 [History] Metoprolol Succinate [Toprol XL] 25 mg PO DAILY 03/10/14 [History] atorvaSTATin Calcium [Atorvastatin Calcium] 80 mg PO DAILY 03/10/14 [History] Indomethacin 25 mg PO TID 01/02/18 [History] Valsartan 80 mg PO 01/02/18 [History] oxyCODONE HCl/Acetaminophen [Oxycodone-Acetaminophen 5-325] 1 - 2 tab PO QID PRN 01/02/18 [History] Orphenadrine [Norflex] 100 mg PO BID #10 tab.er 01/04/18 [Rx] Patient Handouts: Hip Pain, Back Exercises, Sciatica, Steps to Quit Smoking Forms: ED Department Discharge Referrals: King Taveras MD [Physician] - 01/18/18 1:15 pm (Please register at the check- in desk for the [facility] at 1:00pm. will be doing an injection at this time.) Prudencio Deal MD [Primary Care Provider] - 01/07/18 11:30 am - Discharge Summary/Plan Comment DC Time >30 min.: No - General Info Date of Service: 01/02/18 Functional Status: Reports: Pain Controlled (improved), Tolerating Diet, Ambulating (with a walker/cructches) - Review of Systems General: Reports: No Symptoms HEENT: Reports: No Symptoms Pulmonary: Reports: Shortness of Breath Cardiovascular: Reports: No Symptoms Gastrointestinal: Reports: No Symptoms Genitourinary: Reports: No Symptoms Musculoskeletal: Reports: No Symptoms Skin: Reports: No Symptoms Neurological: Reports: No Symptoms Psychiatric: Reports: No Symptoms - Patient Data Vitals - Most Recent: Last Vital Signs Temp 37.6 C 01/04/18 08:52 Pulse 94 01/04/18 09:54 Resp 16 01/04/18 08:52 BP 119/76 01/04/18 09:54 Pulse Ox 93 L 01/04/18 08:52 Weight - Most Recent: 97.704 kg I&O - Last 24 hours: Intake & Output 01/03/18 01/04/18 01/04/18 22:59 06:59 14:59 Intake Total 280 400 Output Total 600 Balance -320 400 Lab Results - Last 24 hrs: Laboratory Results - last 24 hr 01/03/18 Range/Units 19:40 Triglycerides 90 (<150) mg/dL Cholesterol 150 (<200) mg/dL LDL Cholesterol Direct 84 (<100) mg/dL HDL Cholesterol 54.0 (40-59) mg/dL Med Orders - Current: Current Medications Aspirin (Halfprin) 81 mg PO DAILY [facility] Last Admin: 01/04/18 09:53 Dose: 81 mg Clopidogrel Bisulfate (Plavix) 75 mg PO DAILY [facility] Last Admin: 01/04/18 09:51 Dose: 75 mg Famotidine (Pepcid) 20 mg PO DAILY [facility] Last Admin: 01/04/18 09:52 Dose: 20 mg Gabapentin (Neurontin) 200 mg PO BID [facility] Last Admin: 01/04/18 09:52 Dose: 200 mg Hydralazine HCl (Apresoline) 10 mg IVPUSH Q4H PRN PRN Reason: Hypertension Last Admin: 01/03/18 20:44 Dose: 10 mg Hydromorphone HCl (Dilaudid) 0.5 mg IVPUSH QID PRN PRN Reason: Pain (moderate 4-6) Last Admin: 01/03/18 20:20 Dose: 0.5 mg Metoprolol Succinate (Toprol Xl) 25 mg PO DAILY [facility] Last Admin: 01/04/18 09:54 Dose: 25 mg Morphine Sulfate (Morphine) 4 mg IVPUSH Q2H PRN PRN Reason: Pain Last Admin: 01/04/18 02:12 Dose: 4 mg Orphenadrine Citrate (Norflex) 100 mg PO BID [facility] Last Admin: 01/04/18 09:55 Dose: 100 mg Rosuvastatin Calcium (Crestor) 20 mg PO DAILY [facility] Last Admin: 01/04/18 09:53 Dose: 20 mg Sodium Chloride (Saline Flush) 10 ml FLUSH ASDIRECTED PRN PRN Reason: Keep Vein Open Last Admin: 01/02/18 08:15 Dose: 10 ml Discontinued Medications Hydrocodone Bitart/Acetaminophen ([place] 325-10 Mg) 1 tab PO ONETIME ONE Stop: 01/04/18 09:46 Last Admin: 01/04/18 09:56 Dose: 1 tab Cyclobenzaprine HCl (Flexeril) 10 mg PO ONETIME ONE Stop: 01/02/18 16:34 Last Admin: 01/02/18 17:33 Dose: 10 mg Dexamethasone (Dexamethasone) 10 mg IV ONETIME ONE Stop: 01/02/18 16:34 Last Admin: 01/02/18 17:34 Dose: Not Given Dexamethasone (Dexamethasone) 10 mg IVPUSH ONETIME ONE Stop: 01/02/18 17:27 Last Admin: 01/02/18 17:31 Dose: 10 mg Dexamethasone (Dexamethasone) Confirm Administered Dose 10 mg .ROUTE .STK-MED ONE Stop: 01/02/18 17:26 Last Admin: 01/02/18 17:31 Dose: Not Given Dexamethasone (Dexamethasone) 4 mg IVPUSH Q8H [facility] Last Admin: 01/03/18 06:05 Dose: 4 mg Dexamethasone (Dexamethasone) 8 mg IVPUSH Q8H [facility] Stop: 01/04/18 09:00 Last Admin: 01/04/18 05:11 Dose: 8 mg Diphtheria/Tetanus/Acell Pertussis (Adacel) 0.5 ml IM .ONCE ONE Stop: 01/02/18 20:26 Last Admin: 01/02/18 21:43 Dose: Not Given Gabapentin (Neurontin) 100 mg PO ONETIME ONE Stop: 01/02/18 16:30 Last Admin: 01/02/18 17:33 Dose: 100 mg Gadobenate Dimeglumine (Multihance) 20 ml IVPUSH ONETIME ONE Stop: 01/02/18 11:30 Last Admin: 01/02/18 19:52 Dose: Not Given Hydromorphone HCl (Dilaudid) 1 mg IVPUSH ONETIME ONE Stop: 01/02/18 16:28 Last Admin: 01/02/18 17:28 Dose: 1 mg Lactated Ringer's (Ringers, Lactated) 1,000 mls @ 150 mls/hr IV ONETIME ONE Stop: 01/03/18 02:54 Last Admin: 01/02/18 21:11 Dose: 150 mls/hr Ketorolac Tromethamine (Toradol) 30 mg IVPUSH ONETIME ONE Stop: 01/02/18 16:30 Last Admin: 01/02/18 17:34 Dose: 30 mg Ketorolac Tromethamine (Toradol) 30 mg IVPUSH Q8H [facility] Stop: 01/04/18 09:00 Last Admin: 01/04/18 01:04 Dose: 30 mg Magnesium Hydroxide (Milk Of Magnesia) 30 ml PO ONETIME ONE Stop: 01/04/18 05:39 Last Admin: 01/04/18 05:50 Dose: 30 ml Sodium Chloride (Saline Flush) 10 ml FLUSH ASDIRECTED NATALIE - Exam Quality Assessment: Reports: DVT Prophylaxis General: Reports: Alert, Oriented, Cooperative, No Acute Distress HEENT: Reports: Pupils Equal, Pupils Reactive, EOMI Neck: Reports: Trachea Midline Lungs: Reports: Normal Respiratory Effort Cardiovascular: Reports: Regular Rate, Regular Rhythm GI/Abdominal Exam: Normal Bowel Sounds, Soft, Non-Tender, No Organomegaly, No Distention (Male) Exam: Deferred Rectal (Males) Exam: Deferred Back Exam: Reports: Normal Inspection, Decreased Range of Motion Extremities: Normal Inspection, Normal Range of Motion, Normal Capillary Refill Skin: Reports: Warm Neurological: Reports: No New Focal Deficit, Normal Speech, Cranial Nerves Intact Psy/Mental Status: Reports: Alert, Normal Affect, Normal Mood
--- NOTE | 2018-01-29 10:12 | CONS ---
CONSULTING PHYSICIAN: King Taveras MD DATE OF CONSULTATION: 01/02/2018 HISTORY OF PRESENT ILLNESS: This is a 62-year-old gentleman who comes in with gradual left hip pain that has become very severe to the point that he can barely move. At this point, the patient states he has pain centered in the lower abdominal region and left groin region. The patient states he initially had some pain in his low back as well as the hip. He had an MRI of the low back completed with no concerns by Dr. Stephens. The patient subsequently has had increasing pain, which was very severe with any sort of movement, he fetalizes at times. He does not seem to be as bad. He has been taking nonsteroidal anti-inflammatories, oxycodone, as well as muscle relaxer, which does make the pain bearable, but it has been even worse lately, it is worse with ambulation and today, he is refusing to walk secondary to the pain. The patient did see Dr. Deal and he is referred for an outpatient MRI, which is scheduled for next week, and he was scheduled to see an orthopedist, but he will not see another physician until January. PHYSICAL EXAMINATION: GENERAL: The patient is alert, he is in moderate distress secondary to the left lower quadrant pain. SKIN: Intact. There is no erythema or warmth. ABDOMEN: He has no tenderness to palpation over the left groin region. He does have some tenderness to palpation in the left lower quadrant. He has a positive Psoas sign. MUSCULOSKELETAL: He has no pain with log roll to the left hip. He has no pain with internal or external rotation of the hip. He does have pain with resisted hip flexion in the lower left quadrant. He otherwise neurovascularly intact L2 through S1 with 2+ distal dorsalis pedis and posterior tibial pulses. RADIOGRAPHS: MRI of the left hip looking for psoas abscess was negative and radiographs show minor to no osteoarthritic change to the left hip. ASSESSMENT: Left lower quadrant pain. PLAN: At this time, I did discuss with the patient that secondary to his left lower quadrant pain and left leg inclined with his exam and the MRI to think that he has osteoarthritic or any intra-articular process of the left hip going on at this time though I did discuss with the patient that we can do a diagnostic injection to the left hip to rule out that as his cause of pain. At this time, the patient will be scheduled for this on an outpatient basis. At this time, all of this was discussed with the patient and they are in agreement with this plan. MANN /[id number]
== END 2018-01-04 13:10 | disposition home or self-care (01) | DRG 351 ==
LOC: JD.ED 06:48 → JD.MS 18:33 → JD.ED 19:00
PROVIDERS: ADMIT Internal Medicine Cardiovascular Disease; ATTEND Internal Medicine Cardiovascular Disease
DX: M25.552 Pain in left hip (principal); M54.42 Lumbago with sciatica, left side; R20.0 Anesthesia of skin; I25.10 Atherosclerotic heart disease of native coronary artery without angina pectoris; Z95.5 Presence of coronary angioplasty implant and graft; F17.200 Nicotine dependence, unspecified, uncomplicated; H54.7 Unspecified visual loss; Z91.041 Radiographic dye allergy status; Z79.02 Long term (current) use of antithrombotics/antiplatelets; Z79.82 Long term (current) use of aspirin; Z79.899 Other long term (current) drug therapy
CPT/HCPCS: 36415; 72195; 72195-26; 74176; 74176-26; 80053; 80061; 81001; 85025; 85652; 86140; 96374; 96375; 96376; 97116-GP; 97140-GP; 97162-GP; 97165-GO; 99285; 99285-25; A9270-GY; J0360; J1100; J1170; J1885; J2270; J7050; J7120